=== PATIENT | male | born 1960 | race Caucasian/White ===

== ENCOUNTER 2018-11-08 21:14 | Emergency (ER) | payer MEDICAID ==
[~2018-11-08] VITALS: Ht 175.3 cm; Wt 79.8 kg
[2018-11-08 21:19] VITALS: Ht 175.3 cm; Wt 79.8 kg
[2018-11-08 23:04] VITALS: BP 132/79
== END 2018-11-08 23:04 | disposition home or self-care (01) ==
LOC: ED 21:14
DX: T78.3XXA Angioneurotic edema, initial encounter (principal); I10 Essential (primary) hypertension
CPT/HCPCS: J1200; J7512